=== PATIENT | male | born 2000 | race African-American/Black ===

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

== ENCOUNTER 2018-03-19 14:24 | Day surgery (SDC) | payer OTHER ==
--- NOTE | 2018-03-19 10:44 | GHP ---
DATE OF ADMISSION: 03/19/2018 CHIEF COMPLAINT: Right thumb pain. 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 He was seen and evaluated the following day by Dr. Cool, who reviewed radiographs showing a right thumb [place] fracture. After discussion of treatment options with the patient, Dr. Cool has recommended a surgical fixation for this injury. The patient has consented to have his right thumb surgically repaired. He has no additional concerns or complaints at this time. PAST MEDICAL HISTORY: None. The patient states he is otherwise healthy. This patient does have an orthopedic history significant for an anterior superior iliac spine avulsion-type injury, which was treated nonsurgically. No additional past medical history is reported. PAST SURGICAL HISTORY: None. The patient denies any past surgical history. ALLERGIES: The patient states no known drug allergies. MEDICATIONS: None. The patient denies any medication or supplement use. SOCIAL HISTORY: The patient denies any current or former tobacco use, alcohol consumption, or recreational drug use. 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 He is normally seen for primary care services as a student athlete by Dr. Kelvin Padilla. FAMILY HISTORY: No significant contributory family history is reported today. REVIEW OF SYSTEMS: An 11-point review of systems was reviewed and is negative for any additional concerns, complaints, or abnormal findings not noted in the HPI or PMH. PHYSICAL EXAMINATION: The following observations are made and documented, not because they have particular relevance as the patient's exam or the reason for which they are seen, but rather it is determined that inclusion of such observations is required to document a complete examination. GENERAL: Healthy appearing male who presents in NAD. HEENT: NC/AT, EOMI, PERRLA. The ears and nares are patent without discharge. OP is clear. NECK: Normal in appearance with midline trachea, supple, full ROM. RESPIRATORY: Chest motion appears normal, respirations are nonlabored. No increased WOB is noted. CARDIOVASCULAR: RRR, no m/c/g/r. ABDOMEN: Soft, NT/ND. No HSM noted. SKIN: Warm and dry. MUSCULOSKELETAL: Right hand is compared to left for exam purposes. Examination of the right thumb reveals swelling at the base of the thumb, at the 1st CMC joint. Patient is tender to palpation over the 1st CMC joint, without crepitus. Patient is apprehensive to move his thumb secondary to pain. Patient is intact to light touch sensation distally, as well as in the median , radial, ulnar nerve distributions. The remainder of the right wrist and hand exam reveals NTTP of the distal radius and ulna, carpals, metacarpals 2 through 5, and digits 2 through 5. Capillary refills less than 2 seconds in the finger pulps. DNVI BUE. NEUROLOGIC: A and O x3, appropriate mood and affect. Speech is noted to be fluid and fluent. PSYCHIATRIC: Affect normal, pleasant, cooperative with today's exam. RADIOGRAPHS: 3 views of the right thumb are reviewed showing a comminuted intra -articular fracture of the base of the 1st metacarpal, extending intra- articularly into the CMC joint. This is wholesale representative of a Medell[place] fracture. ASSESSMENT: Right 1st metacarpal base fracture, comminuted (Medellin's fracture) . PLAN: This patient was seen and examined by Dr. Cool. As noted above, after a discussion of treatment options with the patient, as well as his treating athletic trainers, Dr. Cool has recommended a surgical fixation of this fracture. The patient has consented to undergo an open reduction, internal fixation, with possible pin fixation of the right 1st metacarpal base fracture to be performed by Dr. Cool at [facility] on 2017. Preoperative orders were placed in the [facility] system. Patient will receive Ancef for perioperative antibiotic prophylaxis. Patient has received a prescription for post operative pain management previously. All the patient's questions were answered today, and his concerns addressed. He has relayed his understanding of the current care plan and education presented today. It remains my pleasure to assist in the care of this patient. /[id number]/MODL MTDD
--- NOTE | 2018-03-19 13:59 | PDANEPAE ---
ANE History of Present Illness Thyroidectomy ANE Past Medical History - Cardiovascular History Hx Hypertension: No Hx Arrhythmias: No Hx Chest Pain: No Hx Coronary Artery / Peripheral Vascular Disease: No Hx CHF / Valvular Disease: No Hx Palpitations: No - Pulmonary History Hx COPD: No Hx Asthma/Reactive Airway Disease: No Hx Recent Upper Respiratory Infection: No Hx Oxygen in Use at Home: No Hx Sleep Apnea: No ANE Review of Systems Review of Systems: - Exercise capacity METS (RN): 4 METS ANE Patient History - Allergies Allergies/Adverse Reactions: No Known Drug Allergies Allergy (Verified 03/19/18 08:24) - Home Medications Home medications: home medication list seen and reviewed - NPO status NPO Status: no food or drink >8 hours - Anes Hx Anes Hx: no prior problems - Smoking Hx Smoking Status: Never smoked ANE Physical Exam - Airway Neck exam: FROM Mallampati Score: Class 1 Mouth exam: normal dental/mouth exam - Pulmonary Pulmonary: no respiratory distress, no rales or rhonchi - Cardiovascular Cardiovascular: regular rate and rhythym, no murmur, rub, or gallop - ASA Status ASA Status: I ANE Anesthesia Plan Anesthesia Plan: general endotracheal anesthesia
[~2018-03-19 14:24] MED LIST: MIDAZOLAM 2 MG/2 ML VIAL IVP ONE; SCOPOLAMINE HYDROBROMIDE 1 MG/3 DAYS PATCH TD SCH
[2018-03-19] MEDS ORDERED: ceFAZolin 2 GM/DEXTROSE 100 ML IV ONE (14:40)
[2018-03-19] MEDS ORDERED: LR 1,000 ML IV ONE (14:41)
[2018-03-19] MEDS ORDERED: BACITRACIN 50,000 UNITS/10 ML SYR IRR ONE (15:31)
[2018-03-19] MEDS ORDERED: MIDAZOLAM 2 MG/2 ML VIAL IVP ONE (16:17)
--- NOTE | 2018-03-19 16:22 | PDHPUP ---
History & Physical Update H&P update statement: This history and physical update is based on an assessment of the patient which was completed after admission or registration (within 24 hours), but prior to the surgery/procedure. H&P update: H&P reviewed & patient examined, no change in patient's condition since H&P completed
[2018-03-19] MEDS ORDERED: fentaNYL 100 MCG/2 ML INJ ONE ×3 (16:25→18:44)
[2018-03-19] MEDS ORDERED: PROPOFOL 200 MG/20 ML VIAL ONE ×2 (16:25→16:27)
[2018-03-19] MEDS ORDERED: LIDOCAINE 2% 2 ML INJ ONE (16:30)
--- NOTE | 2018-03-19 16:33 | PDANEPAE ---
ANE History of Present Illness right thumb ORIF ANE Past Medical History - Cardiovascular History Hx Hypertension: No Hx Arrhythmias: No Hx Chest Pain: No Hx Coronary Artery / Peripheral Vascular Disease: No Hx CHF / Valvular Disease: No Hx Palpitations: No - Pulmonary History Hx COPD: No Hx Asthma/Reactive Airway Disease: No Hx Recent Upper Respiratory Infection: No Hx Oxygen in Use at Home: No Hx Sleep Apnea: No - Neurologic History Hx Cerebrovascular Accident: No Hx Seizures: No Hx Dementia: No - Endocrine History Hx Diabetes: No - Renal History Hx Renal Disorders: No - Liver History Hx Hepatic Disorders: No - Neurological & Psychiatric Hx Hx Neurological and Psychiatric Disorders: No - Cancer History Hx Cancer: No - Congenital Disorder History Hx Congenital Disorders: No - GI History Hx Gastrointestinal Disorders: No - Chronic Pain History Chronic Pain: No - Surgical History Prior Surgeries: none. ANE Review of Systems Review of Systems: - Exercise capacity METS (RN): 4 METS ANE Patient History - Allergies Allergies/Adverse Reactions: No Known Drug Allergies Allergy (Verified 03/19/18 08:24) - Home Medications Home medications: home medication list seen and reviewed Home Medications: NK [No Known Home Meds] 03/19/18 [Last Taken Unknown] - NPO status NPO Since - Liquids (Date): 03/19/18 NPO Since - Liquids (Time): 07:30 NPO Since - Solids (Date): 03/19/18 NPO Since - Solids (Time): 07:30 - Anes Hx Anes Hx: no prior problems - Smoking Hx Smoking Status: Never smoked - Family Anes Hx Family Hx Anesthesia Complications: none. ANE Labs/Vital Signs - Vital Signs Blood Pressure: 132/67 Heart Rate: 63 Respiratory Rate: 15 O2 Sat (%): 99 Height: 182.88 cm Weight: 83.915 kg ANE Physical Exam - Airway Neck exam: FROM Mallampati Score: Class 1 Mouth exam: normal dental/mouth exam - Pulmonary Pulmonary: no respiratory distress - Cardiovascular Cardiovascular: regular rate and rhythym - ASA Status ASA Status: I ANE Anesthesia Plan Anesthesia Plan: GA w LMA
[2018-03-19] MEDS ORDERED: DEXAMETHASONE 4 MG/ML VIAL ONE (16:50)
[2018-03-19] MEDS ORDERED: ONDANSETRON 4 MG/2 ML VIAL ONE ×2 (16:50→19:48)
[2018-03-19] MEDS: BUPIVACAINE 0.25% 30 ML SDV ONE ×2 (17:04→18:26)
[2018-03-19] MEDS ORDERED: KETOROLAC 30 MG/1 ML SDV ONE (17:50)
[2018-03-19] MEDS ORDERED: HYDROCODONE/APAP 5/325 TAB PO PRN (17:53)
[2018-03-19] MEDS ORDERED: ACETAMINOPHEN 500 MG TAB PO PRN (17:53)
[2018-03-19] MEDS ORDERED: PROMETHAZINE HCL 25 MG/ML INJ IVP PRN (17:53)
[2018-03-19] MEDS ORDERED: ONDANSETRON 4 MG/2 ML VIAL IVP PRN ×2 (17:53→18:26)
[2018-03-19] MEDS ORDERED: ALBUTEROL 3 ML DEYVIAL IH PRN (17:53)
[2018-03-19] MEDS ORDERED: LR 500 ML IV PRN (17:53)
[2018-03-19] MEDS ORDERED: NALOXONE HCL 0.4 MG/ML INJ IVP PRN (17:53)
[2018-03-19] MEDS ORDERED: oxyCODONE IR 5 MG TAB PO PRN (17:53)
--- NOTE | 2018-03-19 17:56 | POSTANESTH ---
Post Anesthetic Evaluation Cardiovascular Status: Normal, Stable Respiratory Status: Normal, Stable Level of Consciousness/Mental Status: Can Participate in Eval, Mildly Sleepy, Arousable Pain Control: Adequate, Prn Tx Ordered Nausea/Vomiting Control: Adequate, Prn Tx Ordered Complications Possibly Related to Anesthesia: None Noted
--- NOTE | 2018-03-19 18:30 | POSTOPPROG ---
Post Op Note Date of Operation: 03/19/18 Surgeon: Frank Cool Tax Manager Cpa: Manny Oswald Anesthesia: LMA Pre-op Diagnosis: Eden Davila Post-op Diagnosis: Same Procedure: ORIF R Thumb metacarpal base fracture Findings: K-Wire fixation Inf/Abcess present in the surg proc area at time of surgery?: No Complications: None
[2018-03-19] MEDS: fentaNYL 100 MCG/2 ML INJ IVP PRN ×2 (18:47→18:58)
--- NOTE | 2018-03-19 19:22 | GOP ---
DATE OF OPERATION: 03/19/2018 SURGEON: Frank Cool MD HANSARD REPORTER: RITIKA Love. PREOPERATIVE DIAGNOSIS: Right thumb heavily comminuted intra-articular Medellin's fracture. POSTOPERATIVE DIAGNOSIS: Right thumb heavily comminuted intra-articular Medellin's fracture. PROCEDURE PERFORMED: Open reduction internal fixation of right Medell[place]'s fracture. FINDINGS: Remarkably heavily comminuted proximal 1st metacarpal fracture was identified. There were 8 separate segments of bone including 4 central depressed fragments. The fragments were all elevate d and held into position with K-wires. I additionally used 2 transverse K-wires between the 1st and 2nd metacarpal to offload the 1st carpometacarpal joint. 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 Due to the heavily comminuted nature of his fracture, he was brought to the operating room for defi nitive surgical management. DESCRIPTION OF PROCEDURE: After routinely checking the patient's identification and consent, and the successful induction of LMA general anesthetic, the patient's right upper extremity was prepped and draped in the usual standard fashion. I exsanguinated the limb with an Esmarch wrap and pneumatic to urniquet previously placed about the proximal right arm. It was inflated to 250 mmHg. A surgical ti me-out was completed. I visualized the left thumb based on the small FluoroScan unit. The level of comminution and central depressed fragments were readily evident. I attempted to manipulate this closed, but there was no p ossible way of elevating the central depressed fragments. As such, I made a Renteria approach to the base of the thumb. This was a longitudinal incision over th e 1st dorsal aspect of the 1st metacarpal curving proximally and ulnarly to the level of the FCR tend on. I dissected sharply through the skin and protected several crossing terminal branches of the sen mabel branch radial nerve and lateral antebrachial cutaneous nerve branches. I dissected down to the level of the joint capsule. I opened the capsule dorsally. As noted above, there was quite remarkab le comminution. My first order of business was to reduce the most radial volar fragment back to the shaft. I mobiliz ed this fragment and then held it in position with a K-wire. I then distracted the thumb and held it distracted by placing 2 transverse K-wires through the 1st metacarpal into the 2nd metacarpal. I no w removed the central depressed fragments which were completely free without any attachment of soft t issue. These were full-thickness bone and cartilage fragments. I positioned him on the [place] stand t emporarily. Four fragments were extracted in this fashion, leaving the most palmar beak fragment and ulnar side condyle fragment in place. I then reduced the ulnar-sided condylar fragment and held thi s with a K-wire placed from radial to ulnar. I reduced the palmar lip fragment by elevating this wit h a dental pick and then holding this in position with a K-wire. I then replaced the articular surfa ce fragments as best possible and pieced them together in somewhat of completing a jigsaw puzzle. Th efrain actually recreated his articular cartilage quite well, but with little support behind it. As suc h, I repositioned, I added additional K-wires to help support these fragments. I then removed the or iginal provisional K-wires holding the [address], and leaving finally positioned K-wires th at supported both the condyle and the articular face fragments. I did not think I could improve the situation any better than it was, recognizing that the reduction was imperfect, due to the sheer level of comminuted pieces and their small size. The central 4 fragm ents were only about 4-5 mm in size each. This represented the central dorsal two thirds of the thum b metacarpal base articular surface. All K-wires were then trimmed above the skin surface. I pulled the skin over several of these K-wires and then bent the K-wires over. I closed the capsule at the 1st CMC joint with 4-0 Vicryl sutures after thoroughly irrigating this with normal saline. I closed the subcutaneous layer with 4-0 Vicryl sutures and then the skin with interrupted sutures of 5-0 nylo n followed by a sterile bulky dressing and compressive wrap. All 5 of the final pins were left proud to the skin. A sterile bulky dressing was applied, followed by a thumb spica plaster splint and com pressive wrap. He tolerated the procedure well. There were no complications. REASON FOR CHEST PAIN COORDINATOR: The surgical oncologist was medically necessary and required to comple te this case. The assistant store manager trainee was to decrease surgical time and also to help distract the thumb during manipulation of the bone fragments and placing segments back in their normal positions. /[id number]/MODL
[2018-03-19] MEDS ORDERED: oxyCODONE IR 5 MG TAB ONE (19:26)
[2018-03-19 19:43] VITALS: BP 128/93
[2018-03-19] MEDS ORDERED: ONDANSETRON 4MG PREPACK#2 BTL TAKEHOME ONE (19:45)
[2018-03-19] MEDS ORDERED: ONDANSETRON DISINTEGRATING 4 MG TAB PO PRN (19:46)
[2018-03-22] MEDS ORDERED: PATCH REMOVAL 1 EA PATCH TD SCH (13:53)
== END 2018-03-19 20:16 | disposition home or self-care (01) ==
LOC: FSGY 14:24
PROVIDERS: ATTEND Orthopaedic Surgery Hand Surgery
PROC: 0PSP0ZZ Reposition Right Metacarpal, Open Approach (ICD-10-PCS; principal; 2018-03-19 16:15)
DX: S62.211A Bennett's fracture, right hand, initial encounter for closed fracture (principal); Y93.61 Activity, american tackle football; Y92.321 Football field as the place of occurrence of the external cause; Y99.8 Other external cause status
CPT/HCPCS: C1713; J0690; J1100; J1885; J2250; J2405; J2704; J3010